=== PATIENT | female | born 1950 | race African-American/Black ===

== ENCOUNTER 2017-10-28 18:00 | Emergency (ER) | payer SELFPAY ==
[~2017-10-28] VITALS: Ht 160 cm; Wt 54.4 kg
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
[2017-10-28] MEDS ORDERED: Acetaminophen 500mg (ES) tab ORAL ONE (18:15)
[2017-10-28] MEDS ORDERED: Methocarbamol 500mg tab ORAL ONE (18:15)
[2017-10-28 18:17] VITALS: BP 145/90
[2017-10-28] MEDS ORDERED: TYLENOL EXTRA500 MG ORAL (19:15)
[2017-10-28] MEDS ORDERED: ROBAXIN500 MG PO (19:15)
[2017-10-28 19:55] VITALS: BP 145/90
--- NOTE | 2017-10-29 09:44 | Diagnostic Imaging Report ---
Indication: Dyspnea Comparison: None A single view chest radiograph was obtained. Findings: Cardiomediastinal appearance is within normal limits for age. Pulmonary vascularity is appropriate. The diaphragmatic contour is smooth and costophrenic angles are sharp. No pleural effusions are identified. The bones are osteopenic. Impression: No acute findings
== END 2017-10-28 19:55 | disposition home or self-care (01) ==
LOC: EDBD 18:00 → EMR 19:46
DX: S16.1XXA Strain of muscle, fascia and tendon at neck level, initial encounter (principal); V43.52XA Car driver injured in collision with other type car in traffic accident, initial encounter; Y92.410 Unspecified street and highway as the place of occurrence of the external cause; R07.89 Other chest pain; Z88.0 Allergy status to penicillin
CPT/HCPCS: 71045; 99284